=== PATIENT | male | born 1975 | race Caucasian/White ===

== ENCOUNTER 2022-01-13 09:42 | Emergency (ER) | payer BC ==
[~2022-01-13] VITALS: Wt 112.5 kg
[2022-01-13] MEDS ORDERED: PREDNISONE20 M1 PO (11:10)
[2022-01-13] MEDS ORDERED: SKELAXIN800 M1 PO (11:10)
== END 2022-01-13 11:19 | disposition home or self-care (01) ==
LOC: ED 09:42
DX: S39.012A Strain of muscle, fascia and tendon of lower back, initial encounter (principal); X58.XXXA Exposure to other specified factors, initial encounter; Y93.89 Activity, other specified; Y92.89 Other specified places as the place of occurrence of the external cause; Y99.8 Other external cause status